=== PATIENT | male | born 1995 | race Two or more races ===

== ENCOUNTER 2017-03-02 20:33 | Emergency (ER) | payer OTHER ==
[2017-03-02] MEDS ORDERED: NO HOME MEDICATION XX (21:04)
[2017-03-02] MEDS ORDERED: IBUPROFEN600 M1 PO (22:23)
== END 2017-03-02 22:42 ==
LOC: EDMED 20:33
DX: S63.502A Unspecified sprain of left wrist, initial encounter (principal); S83.92XA Sprain of unspecified site of left knee, initial encounter; S50.12XA Contusion of left forearm, initial encounter; S00.93XA Contusion of unspecified part of head, initial encounter; W11.XXXA Fall on and from ladder, initial encounter; Y92.69 Other specified industrial and construction area as the place of occurrence of the external cause; Y99.0 Civilian activity done for income or pay